=== PATIENT | male | born 1950 | race African-American/Black ===

== ENCOUNTER 2020-10-19 07:27 | Emergency (ER) | payer MEDICARE, MEDICAID ==
[~2020-10-19] VITALS: Ht 177.8 cm; Wt 73.0 kg
[2020-10-19 09:01] LABS: CLARITY URINE CLEAR (CLEAR); COLOR URINE ORANGE (YELLOW); KETONES URINE NEGATIVE (NEGATIVE); LEUKOCYTE ESTERASE URINE NEGATIVE (NEGATIVE); NITRITE URINE NEGATIVE (NEGATIVE); OCCULT BLOOD URINE 3+ (NEGATIVE); PROTEIN URINE 1+ (NEGATIVE); SPECIFIC GRAVITY URINE 1.014 (1.005-1.030)
[2020-10-19 11:13] VITALS: BP 155/110
[2020-10-20] MEDS ORDERED: AMLO10TA80 PO (18:02)
[2020-10-20] MEDS ORDERED: TAMS-11 PO (18:02)
[2020-10-20] MEDS ORDERED: ATOR10TA69 PO (18:02)
[2020-10-20] MEDS ORDERED: ASPI-986 PO (18:02)
[2020-10-20] MEDS ORDERED: MULT-1146 MT (18:02)
== END 2020-10-19 11:14 | disposition home or self-care (01) ==
LOC: ER 07:47
DX: N40.0 Benign prostatic hyperplasia without lower urinary tract symptoms (principal); R33.9 Retention of urine, unspecified; I10 Essential (primary) hypertension
CPT/HCPCS: 51702; 81003; 99284

== ENCOUNTER 2020-10-20 10:10 | Inpatient (IN) | payer MEDICARE, MEDICAID ==
[~2020-10-20] VITALS: Ht 177.8 cm; Wt 64.9 kg
[2020-10-20 12:54] LABS: CLARITY URINE CLEAR (CLEAR); COLOR URINE ORANGE (YELLOW); KETONES URINE NEGATIVE (NEGATIVE); LEUKOCYTE ESTERASE URINE NEGATIVE (NEGATIVE); NITRITE URINE NEGATIVE (NEGATIVE); OCCULT BLOOD URINE 3+ (NEGATIVE); PH URINE 7.5 (4.5-8.0); PROTEIN URINE 1+ (NEGATIVE); SPECIFIC GRAVITY URINE 1.012 (1.005-1.030)
[2020-10-20] MEDS ORDERED: SODIUM CHLORIDE 0.9% 1,000 ML IV ONE (13:15)
[2020-10-20 13:21] LABS: BASOPHILS % 0.9 % (0.0-2.0); EOSINOPHILS % 1.2 % (0.0-5.0); HEMATOCRIT. 43.8 % (42.0-52.0); HEMOGLOBIN. 14.3 g/dL (14.0-18.0); LYMPHOCYTES % 15.1 % (20.0-50.0); MEAN CORPUSCULAR HEMOGLOBIN 28.7 pg (28.0-32.0); MEAN CORPUSCULAR VOLUME 87.8 fL (80.0-94.0); MEAN PLATELET VOLUME 8.7 fl (7.4-10.4); MONOCYTES % 9.7 % (2.0-8.0); NEUTROPHILS % 73.1 % (40.0-76.0); PLATELET 371 x1000/uL (130-400); RED BLOOD CELL COUNT 4.99 mill/uL (4.7-6.1)
[2020-10-20 16:15] VITALS: BP 144/79
[2020-10-20] MEDS ORDERED: ONDANSETRON HCL 4MG/2ML INJ IV PRN (16:45)
[2020-10-20] MEDS ORDERED: ATOR10TA69 PO (18:02)
[2020-10-20] MEDS ORDERED: AMLO10TA80 PO (18:02)
[2020-10-20] MEDS ORDERED: TAMS-11 PO (18:02)
[2020-10-20] MEDS ORDERED: ASPI-986 PO (18:02)
[2020-10-20] MEDS ORDERED: MULT-1146 MT (18:02)
[2020-10-20 20:00] VITALS: BP 138/87
[2020-10-21] VITALS: BP 117/75
[2020-10-21 04:00] VITALS: BP 119/80
[2020-10-21 06:55] LABS: BASOPHILS % 0.6 % (0.0-2.0); EOSINOPHILS % 3.4 % (0.0-5.0); HEMATOCRIT. 39.4 % (42.0-52.0); HEMOGLOBIN. 13.2 g/dL (14.0-18.0); LYMPHOCYTES % 32.6 % (20.0-50.0); MEAN CORPUSCULAR HEMOGLOBIN 29.2 pg (28.0-32.0); MEAN CORPUSCULAR VOLUME 87.2 fL (80.0-94.0); MEAN PLATELET VOLUME 8.4 fl (7.4-10.4); MONOCYTES % 8.9 % (2.0-8.0); NEUTROPHILS % 54.5 % (40.0-76.0); PLATELET 355 x1000/uL (130-400); RED BLOOD CELL COUNT 4.52 mill/uL (4.7-6.1); RED CELL DISTRIBUTION WIDTH 13.6 % (11.6-14.6)
[2020-10-21 08:00] VITALS: BP 122/77
[2020-10-21 12:00] VITALS: BP 116/75
[2020-10-21 16:00] VITALS: BP 118/75
[2020-10-21 20:00] VITALS: BP 136/55
[2020-10-21] MEDS: ACETAMINOPHEN 325MG TABLET PO PRN (21:59)
[2020-10-22] VITALS: BP 121/72
[2020-10-22 04:00] VITALS: BP 137/73
[2020-10-22] MEDS: ACETAMINOPHEN 325MG TABLET PO PRN (11:38)
[2020-10-22] MEDS ORDERED: TAMSULOSIN HCL 0.4MG SR CAPSULE PO SCH (14:00)
[2020-10-22] MEDS ORDERED: FINASTERIDE 5MG TABLET PO SCH (14:00)
[2020-10-22 14:11] VITALS: BP 137/73
== END 2020-10-22 15:27 | disposition home or self-care (01) | DRG 466 ==
LOC: ER 10:44 → EDBEDREQ 14:39 → ENRESERV 15:22 → 6EST 16:41
PROVIDERS: ADMIT Internal Medicine; ATTEND Internal Medicine
DX: T83.091A Other mechanical complication of indwelling urethral catheter, initial encounter (principal); N17.0 Acute kidney failure with tubular necrosis; N40.1 Benign prostatic hyperplasia with lower urinary tract symptoms; R33.8 Other retention of urine; E87.8 Other disorders of electrolyte and fluid balance, not elsewhere classified; Y73.8 Miscellaneous gastroenterology and urology devices associated with adverse incidents, not elsewhere classified; I10 Essential (primary) hypertension; N13.8 Other obstructive and reflux uropathy; Z79.82 Long term (current) use of aspirin; Z79.899 Other long term (current) drug therapy; Y92.89 Other specified places as the place of occurrence of the external cause
CPT/HCPCS: 36415; 80048; 81003; 85025; 97161; 99285; J7030

== ENCOUNTER 2020-10-27 10:26 | Emergency (ER) | payer MEDICARE, MEDICAID ==
[~2020-10-27] VITALS: Ht 182.9 cm; Wt 77.0 kg
[~2020-10-27 10:26] MED LIST: AMLO10TA80 PO; ASPI-986 PO; ATOR10TA69 PO; MULT-1146 MT; TAMS-11 PO
[2020-10-27 11:23] LABS: CLARITY URINE CLEAR (CLEAR); COLOR URINE YELLOW (YELLOW); KETONES URINE NEGATIVE (NEGATIVE); LEUKOCYTE ESTERASE URINE 1+ (NEGATIVE); NITRITE URINE NEGATIVE (NEGATIVE); OCCULT BLOOD URINE 2+ (NEGATIVE); PH URINE 7.5 (4.5-8.0); PROTEIN URINE 1+ (NEGATIVE); SPECIFIC GRAVITY URINE 1.018 (1.005-1.030)
[2020-10-27] MEDS ORDERED: AMOX1TAB16 MT (12:17)
[2020-10-27 12:46] VITALS: BP 112/68
== END 2020-10-27 12:46 | disposition home or self-care (01) ==
LOC: ER 11:15
DX: N40.0 Benign prostatic hyperplasia without lower urinary tract symptoms (principal)
CPT/HCPCS: 81003; 99283; Z7610

== ENCOUNTER 2020-11-20 19:27 | Emergency (ER) | payer MEDICARE, MEDICAID ==
[~2020-11-20] VITALS: Ht 185.4 cm; Wt 83.0 kg
[~2020-11-20 19:27] MED LIST changes: +AMOX1TAB16 MT
[2020-11-20] MEDS ORDERED: MORPHINE SULFATE 10 MG/ML CPJ IM ONE (20:30)
[2020-11-20] MEDS ORDERED: CEPHALEXIN 250MG CAPSULE PO ONE (20:45)
[2020-11-20] MEDS ORDERED: CEPH500C2 MT (22:33)
[2020-11-20 23:52] VITALS: BP 110/60
== END 2020-11-20 23:54 | disposition home or self-care (01) ==
LOC: ER 19:27
DX: T83.018A Breakdown (mechanical) of other urinary catheter, initial encounter (principal); E78.00 Pure hypercholesterolemia, unspecified; I10 Essential (primary) hypertension; Z86.73 Personal history of transient ischemic attack (TIA), and cerebral infarction without residual deficits
CPT/HCPCS: 51702; 96372; 99284; J2270; A4315

== ENCOUNTER 2020-11-21 00:30 | Emergency (ER) | payer MEDICARE, MEDICAID ==
[~2020-11-21] VITALS: Ht 185.4 cm; Wt 83.0 kg
[~2020-11-21 00:30] MED LIST changes: +CEPH500C2 MT
[2020-11-21 02:49] LABS: BASOPHILS % 0.4 % (0.0-2.0); HEMATOCRIT. 41.3 % (42.0-52.0); HEMOGLOBIN. 13.8 g/dL (14.0-18.0); LYMPHOCYTES % 16.3 % (20.0-50.0); MEAN PLATELET VOLUME 7.3 fl (7.4-10.4); MONOCYTES % 6.2 % (2.0-8.0); NEUTROPHILS % 74.1 % (40.0-76.0); PLATELET 482 x1000/uL (130-400); RED BLOOD CELL COUNT 4.75 mill/uL (4.7-6.1); RED CELL DISTRIBUTION WIDTH 13.9 % (11.6-14.6)
[2020-11-21 02:54] LABS: CHLORIDE 108 mEq/L (98-107)
[2020-11-21 06:15] VITALS: BP 132/80
== END 2020-11-21 06:20 | disposition home or self-care (01) ==
LOC: ER 00:30
DX: R53.83 Other fatigue (principal); E78.00 Pure hypercholesterolemia, unspecified; I10 Essential (primary) hypertension; Z13.9 Encounter for screening, unspecified
CPT/HCPCS: 36415; 71045; 80053; 83880; 84484; 85025; 93005; 99285

== ENCOUNTER 2021-12-16 01:20 | Emergency (ER) | payer MEDICARE, MEDICAID ==
[~2021-12-16] VITALS: Ht 185.4 cm; Wt 86.0 kg
[2021-12-16 01:24] VITALS: BP 133/84
[2021-12-16 02:42] LABS: CLARITY URINE TURBID (CLEAR); COLOR URINE YELLOW (YELLOW); KETONES URINE NEGATIVE (NEGATIVE); LEUKOCYTE ESTERASE URINE 3+ (NEGATIVE); NITRITE URINE POSITIVE (NEGATIVE); OCCULT BLOOD URINE 2+ (NEGATIVE); PH URINE 6.5 (4.5-8.0); PROTEIN URINE 2+ (NEGATIVE); SPECIFIC GRAVITY URINE 1.019 (1.005-1.030); UROBILINOGEN URINE 0.2 E.U./dL (0.2-1.0)
[2021-12-16] MEDS ORDERED: ACETAMINOPHEN 500MG TABLET PO ONE (02:45)
[2021-12-16] MEDS ORDERED: CEPH500C2 MT (02:54)
[2021-12-16] MEDS ORDERED: ACET-2708 MT (02:54)
[2021-12-16] MEDS ORDERED: CEFTRIAXONE SODIUM 1 G/VIAL IM ONE (03:00)
[2021-12-18 04:11] LABS: NEISSERIA GONORRHOEAE NAA Negative (Negative)
== END 2021-12-16 04:22 | disposition home or self-care (01) ==
LOC: ER 01:20
DX: N40.1 Benign prostatic hyperplasia with lower urinary tract symptoms (principal); N39.0 Urinary tract infection, site not specified; Z86.73 Personal history of transient ischemic attack (TIA), and cerebral infarction without residual deficits; I12.9 Hypertensive chronic kidney disease with stage 1 through stage 4 chronic kidney disease, or unspecified chronic kidney disease; N18.9 Chronic kidney disease, unspecified; E78.00 Pure hypercholesterolemia, unspecified; Z79.899 Other long term (current) drug therapy
CPT/HCPCS: 81003; 87077; 87086; 87186; 87491; 87591; 96372; 99283; J0696

== ENCOUNTER 2022-05-11 15:53 | Emergency (ER) | payer MEDICARE, MEDICAID ==
[~2022-05-11] VITALS: Ht 188 cm; Wt 78.0 kg
[~2022-05-11 15:53] MED LIST changes: +ACET-2708 MT
[2022-05-11 16:12] VITALS: BP 166/95
[2022-05-11 22:44] LABS: CLARITY URINE CLEAR (CLEAR); COLOR URINE YELLOW (YELLOW); KETONES URINE NEGATIVE (NEGATIVE); LEUKOCYTE ESTERASE URINE 1+ (NEGATIVE); NITRITE URINE NEGATIVE (NEGATIVE); OCCULT BLOOD URINE 3+ (NEGATIVE); PH URINE 5.5 (4.5-8.0); PROTEIN URINE TRACE (NEGATIVE); SPECIFIC GRAVITY URINE 1.006 (1.005-1.030); UROBILINOGEN URINE 0.2 E.U./dL (0.2-1.0)
[2022-05-11 22:58] LABS: BASOPHILS % 0.3 % (0.0-2.0); EOSINOPHILS % 0.2 % (0.0-5.0); HEMATOCRIT. 44.7 % (42.0-52.0); LYMPHOCYTES % 15.6 % (20.0-50.0); MEAN CORPUSCULAR HEMOGLOBIN 29.6 pg (28.0-32.0); MEAN CORPUSCULAR VOLUME 88.1 fL (80.0-94.0); MEAN PLATELET VOLUME 7.4 fl (7.4-10.4); MONOCYTES % 6.4 % (2.0-8.0); NEUTROPHILS % 77.5 % (40.0-76.0); PLATELET 472 x1000/uL (130-400); RED BLOOD CELL COUNT 5.07 mill/uL (4.7-6.1); RED CELL DISTRIBUTION WIDTH 13.6 % (11.6-14.6)
[2022-05-11] MEDS ORDERED: CEPHALEXIN 250MG CAPSULE PO NR (23:00)
[2022-05-11 23:05] LABS: CHLORIDE 110 mEq/L (98-107)
[2022-05-11] MEDS ORDERED: CEPH500C2 MT (23:16)
== END 2022-05-11 21:12 | disposition left against medical advice (07) ==
LOC: ER 15:53
DX: N39.0 Urinary tract infection, site not specified (principal); R33.9 Retention of urine, unspecified; E78.00 Pure hypercholesterolemia, unspecified; I10 Essential (primary) hypertension; Z79.899 Other long term (current) drug therapy
CPT/HCPCS: 36415; 80053; 81003; 85025; 99283

== ENCOUNTER 2022-07-16 17:10 | Emergency (ER) | payer MEDICARE, MEDICAID ==
[~2022-07-16] VITALS: Ht 188 cm; Wt 72.0 kg
[2022-07-16 17:24] VITALS: BP 101/56
== END 2022-07-16 23:50 | disposition home or self-care (01) ==
LOC: ER 17:10
DX: R33.9 Retention of urine, unspecified (principal); Z46.6 Encounter for fitting and adjustment of urinary device; E78.00 Pure hypercholesterolemia, unspecified; I10 Essential (primary) hypertension; Z79.899 Other long term (current) drug therapy
CPT/HCPCS: 99283

== ENCOUNTER 2022-08-25 01:56 | Emergency (ER) | payer MEDICARE, MEDICAID ==
[~2022-08-25] VITALS: Ht 182.9 cm; Wt 82.0 kg
[2022-08-25 01:59] VITALS: O2SAT 98
[2022-08-25] MEDS ORDERED: SULF1TAB48 MT (04:33)
[2022-08-25] MEDS ORDERED: ACETAMINOPHEN WITH CODEINE 300/30MG TABLET PO ONE (05:00)
[2022-08-25 05:06] LABS: CLARITY URINE TURBID (CLEAR); COLOR URINE YELLOW (YELLOW); KETONES URINE NEGATIVE (NEGATIVE); LEUKOCYTE ESTERASE URINE 3+ (NEGATIVE); NITRITE URINE NEGATIVE (NEGATIVE); OCCULT BLOOD URINE 3+ (NEGATIVE); PH URINE 6.5 (4.5-8.0); PROTEIN URINE 2+ (NEGATIVE); SPECIFIC GRAVITY URINE 1.018 (1.005-1.030)
[2022-08-25 06:27] VITALS: BP 138/74; PULSE 85; RESP 16; TEMP 98.8
== END 2022-08-25 08:59 | disposition home or self-care (01) ==
LOC: ER 01:56
DX: N39.0 Urinary tract infection, site not specified (principal)
CPT/HCPCS: 51702; 81003; 99284; A4315